=== PATIENT | male | born 1945 | race Caucasian/White ===

== ENCOUNTER → 2017-01-27 | Outpatient (CLI) | payer MEDICARE, BC ==
--- NOTE | ~2017-01-27 | CT71 ---
[facility] A Service of [facility] RADIOLOGY TEXT RESULTS PATIENT: LOLI MAGANA LOCATION: [facility] : 43 UNIT #: [id number] AGE: [address]: Ana Aj MD SEX: M ORDER DR: [id number] [facility] [address] [place], [place] [address] [id number] O MR#: [id number] Acc #: [id number] NAME: LOLI MAGANA : 1945 SEX: M STUDY DATE/TIME: 01/27/2017 15:22 UNIT: [facility] ROOM: STUDY DESCRIPTION: CT Head Wo Contrast Attending Physician: Ana Aj M.D. Referring Physician: Ana Aj M.D. Ordering Physician: Ana Aj M.D. Primary Care Physician: Ana Aj M.D. MEDICAL IMAGING REPORT This report is preliminary unless electronic signature is present EXAM Head CT, no contrast, 01/27/2017. PROCEDURE Axial unenhanced head CT. COMPARISON STUDIES Prior head CT dated 11/01/2009. HISTORY Dizziness and blurred vision for 3 months. FINDINGS Brain parenchymal density is normal, with the exception of some minimal nonspecific white matter change in the right [place] radiata. This is new since the prior study, but clearly chronic at this time. Brain parenchymal density is otherwise normal. There is no hemorrhage, mass, hydrocephalus, or extraaxial fluid collection. There has been bilateral ocular lens replacement, but the extracranial soft tissues are otherwise normal. The skull base and calvarium are unremarkable. IMPRESSION Mild, presumably chronic, small vessel type white matter change in the right [place] radiata; otherwise, normal negative unenhanced head CT. There is some intracranial atherosclerotic vascular and vertebral vascular calcification, within normal limits for age. Dictated by... Donald Gonzalez M.D. THIS IS AN ELECTRONICALLY VERIFIED REPORT [facility] A Service of [facility] RADIOLOGY TEXT RESULTS PATIENT: LOLI MAGANA LOCATION: [facility] : 43 UNIT #: [id number] AGE: [address]: Ana Aj MD SEX: M ORDER DR: Donald Gonzalez M.D. at 01/28/2017 11:47 AM MUMTAZ/michelle TD: 01/28/2017 11:14 JOB #: [id number] MEDICAL IMAGING REPORT COPY
--- NOTE | ~2017-01-27 | US37 ---
[facility] A Service of [facility] RADIOLOGY TEXT RESULTS PATIENT: LOLI MAGANA LOCATION: [facility] : 43 UNIT #: [id number] AGE: [address]: Ana Aj MD SEX: M ORDER DR: [id number] [facility] [address] [place], [place] [address] [id number] O MR#: [id number] [facility] #: [id number] NAME: LOLI MAGANA : 1945 SEX: M STUDY DATE/TIME: 01/27/2017 15:42 UNIT: [facility] ROOM: STUDY DESCRIPTION: US Carotid W/Doppler Bilateral Attending Physician: Ana Aj M.D. Referring Physician: Ana Aj M.D. Ordering Physician: Ana Aj M.D. Primary Care Physician: Ana Aj M.D. MEDICAL IMAGING REPORT This report is preliminary unless electronic signature is present EXAM Carotid duplex scan, 01/27/2017 HISTORY Changes in vision. Slurred speech. FINDINGS The right common carotid artery has minimal plaque. The right internal and external carotid arteries are patent with minimal plaque. Peak systolic velocity in the proximal right internal carotid artery is 78 cm/sec with an end-diastolic velocity of 17 cm/sec. Peak systolic velocity in the right external carotid artery is 94 cm/sec. The right vertebral artery is patent with antegrade flow. The left common carotid artery has minimal plaque. There is dense irregular plaque in the left carotid bulb which extends up into the proximal internal and external carotid arteries. Peak systolic velocity in the mid left internal carotid artery is 135 cm/sec with an end-diastolic velocity of 32 cm/sec. Peak systolic velocity in the left external carotid artery is 100 cm/sec. The left vertebral artery is patent with antegrade flow. IMPRESSION No significant stenosis (less than 50%) in the right internal carotid artery. Moderate stenosis (50% to 69%) in the left internal carotid artery. No significant stenosis of the external carotid arteries on either side. Patent vertebral arteries bilaterally with antegrade flow. Dictated by... Jah Choi M.D. THIS IS AN ELECTRONICALLY VERIFIED REPORT [facility] A Service of [facility] RADIOLOGY TEXT RESULTS PATIENT: LOLI MAGANA LOCATION: [facility] : 43 UNIT #: [id number] AGE: [address]: Ana Aj MD SEX: M ORDER DR: Jah Choi M.D. at 01/29/2017 7:25 AM Georges TD: 01/28/2017 15:11 JOB #: [id number] MEDICAL IMAGING REPORT COPY
== END | disposition home or self-care (01) ==
LOC: CCAT 14:39
DX: R42 Dizziness and giddiness (principal); I67.2 Cerebral atherosclerosis; I65.22 Occlusion and stenosis of left carotid artery
CPT/HCPCS: 70450; 93880

== ENCOUNTER → 2017-07-29 | Outpatient (CLI) | payer MEDICARE, BC ==
--- NOTE | ~2017-07-29 | US37 ---
[facility] A Service of [facility] & [facility] RADIOLOGY TEXT RESULTS PATIENT: LOLI MAGANA LOCATION: [facility] : 43 UNIT #: [id number] AGE: [address]: Jah Choi MD SEX: M ORDER DR: [id number] [facility] [address] [place], [place] [address] [id number] O MR#: [id number] Acc #: [id number] NAME: LOLI MAGANA : 1945 SEX: M STUDY DATE/TIME: 07/29/2017 12:15 UNIT: [facility] ROOM: STUDY DESCRIPTION: US Carotid W/Doppler Bilateral Attending Physician: Jah Choi M.D. Referring Physician: Jah Choi M.D. Ordering Physician: Jah Choi M.D. Primary Care Physician: Ana Aj M.D. MEDICAL IMAGING REPORT This report is preliminary unless electronic signature is present EXAM Bilateral carotid duplex 07/29/2017 CLINICAL HISTORY Carotid stenosis. FINDINGS There is patent flow seen throughout the right common carotid, internal carotid, and external carotid arteries. There is some diffuse, mild, irregular appearing plaque seen throughout the right common carotid, carotid bifurcation, internal and external carotid arteries. The right common carotid artery peak velocity is 74 cm/sec. The right internal carotid artery peak systolic/end-diastolic velocities are: proximal 59/19 cm/sec, mid 69/24 cm/sec, distal 87/37 cm/sec. The right external carotid artery peak velocity is 70 cm/sec, vertebral artery 96 cm/sec. The right ICA:CCA ratio is 1.17. There is patent flow seen throughout the left common carotid, internal carotid, and external carotid arteries. There is some diffuse atherosclerosis noted at the left common carotid artery. At the left carotid bifurcation, it appears irregular, heterogeneous, and echogenic, and extends into the proximal aspect of the internal carotid artery, as well as the external carotid artery. The left common carotid artery peak velocity is 63 cm/sec. The left internal carotid artery peak systolic/end-diastolic velocities are: proximal 84/25 cm/sec, mid 116/33 cm/sec, distal 135/43 cm/sec. The left external carotid artery peak velocity is 82 cm/sec, and vertebral artery 29 cm/sec. The left ICA:CCA ratio is 2.14. IMPRESSION 1. The right carotid artery has minimal atherosclerosis, which is not hemodynamically significant by duplex criteria (less than 50%). [facility] A Service of [facility] & [facility] RADIOLOGY TEXT RESULTS PATIENT: LOLI MAGANA LOCATION: [facility] : 41 UNIT #: [id number] AGE: [address]: Jah Choi MD SEX: M ORDER DR: 2. The left carotid artery has moderate atherosclerosis, consistent with 50% to 69% stenosis by duplex criteria. This finding is unchanged from the 01/2017 study. 3. Vertebral flow is antegrade bilaterally. Dictated by... Donavan Richard M.D. THIS IS AN ELECTRONICALLY VERIFIED REPORT Donavan Richard M.D. at 08/10/2017 9:31 AM VAL/myrtle TD: 07/30/2017 12:07 JOB #: [id number] MEDICAL IMAGING REPORT Page 1 of 1 COPY
== END | disposition home or self-care (01) ==
LOC: CNIV 11:35
DX: I65.22 Occlusion and stenosis of left carotid artery (principal)
CPT/HCPCS: 93880